=== PATIENT | male | born 1960 | race Caucasian/White ===

== ENCOUNTER 2021-10-13 03:53 | Emergency (ER) | payer SELFPAY ==
[2021-10-13] MEDS ORDERED: NAPROXEN500 MG PO ×2 (04:54→05:27)
[2021-10-13] MEDS ORDERED: NORCO 5-325 TA1 EACH PO ×2 (04:54→05:27)
== END 2021-10-13 05:44 | disposition home or self-care (01) ==
LOC: FER 03:53
DX: K08.89 Other specified disorders of teeth and supporting structures (principal); K11.20 Sialoadenitis, unspecified; I10 Essential (primary) hypertension; F17.210 Nicotine dependence, cigarettes, uncomplicated; Z28.310 Unvaccinated for COVID-19
CPT/HCPCS: 99283